=== PATIENT | male | born 1970 | race Caucasian/White ===

== ENCOUNTER 2020-02-11 12:16 | Inpatient (IN) | payer BC, SELFPAY ==
[~2020-02-11] VITALS: Ht 190.5 cm; Wt 106.6 kg
[2020-02-11 12:16] VITALS: BP_SYST 146
[2020-02-11] MEDS ORDERED: ASPIRIN 81 MG TAB.CHEW PO ONE (12:30)
[2020-02-11] MEDS ORDERED: NITROGLYCERIN 0.4 MG TAB.SUBL SL ONE (12:30)
--- NOTE | 2020-02-11 12:40 | NUR ---
DR WAHL IN TO ASSESS
[2020-02-11 12:58] LABS: BASOPHILS % (AUTO) 0.9 % (0.0-2.0); EOSINOPHILS # (AUTO) 0.1 K/uL (0.0-0.4); HEMATOCRIT 41.8 % (36-54); HEMOGLOBIN 15.1 g/dL (14.0-18.0); LYMPHOCYTES # (AUTO) 1.9 K/uL (1.0-5.5); LYMPHOCYTES % (AUTO) 36.3 % (20.5-51.5); MEAN CORPUSCULAR HEMOGLOBIN 30 pg (27-31); MEAN CORPUSCULAR HGB CONC 36 % (32-36); MEAN CORPUSCULAR VOLUME 83 fL (79.0-98.0); MONOCYTES # (AUTO) 0.4 K/uL (0.0-1.0); MONOCYTES % (AUTO) 6.8 % (1.7-9.3); NEUTROPHILS # (AUTO) 2.8 K/uL (1.8-7.7); PLATELET COUNT (AUTO) 233 K/uL (130-430); RED BLOOD CELL COUNT(AUTO) 5.05 MIL/uL (4.2-6.2); RED CELL DISTRIBUTION WIDTH 13.7 % (9.0-15.0); WHITE BLOOD COUNT (AUTO) 5.2 K/uL (4.8-10.8)
--- NOTE | 2020-02-11 13:01 | NUR ---
NO RELIEF WITH NTG
--- NOTE | 2020-02-11 13:15 | NUR ---
C/O LT UPPER BACK AND CHEST PAIN. WOKE WITH PAIN AND WENT TO PLAY TENNIS. HE C/O SOME ANXIETY BUT UNSURE, SR ON MONITOR AND EKG. RESP UNLABORED, SKIN WARM AND DRY. COMMUNICATES CLEAR
[2020-02-11 13:19] LABS: ANION GAP 9 (5-15); CALCIUM 8.1 mg/dL (8.4-11.0); CHLORIDE 103 mmol/L (98-107); CREATININE 0.98 mg/dL (0.55-1.30); GLUCOSE 121 mg/dL (70-99); POTASSIUM 3.9 mmol/L (3.5-5.1); SODIUM SERUM 139 mmol/L (136-145); UREA NITROGEN, BLOOD 13 mg/dL (8-21)
[2020-02-11 13:22] LABS: GFR AFRICAN AMERICAN 105 mL/min (>90)
--- NOTE | 2020-02-11 13:53 | NUR ---
STATES FEELING BETTER AND REDY TO GO HOME. NO DISTRESS, RESP UNLABORED
[2020-02-11] MEDS ORDERED: NITROGLYCERIN 0.4 MG TAB.SUBL SL PRN (14:15)
--- NOTE | 2020-02-11 14:15 | NUR ---
ADMIT ORDERS RECEIVED FOR TELE/CP/KAIUM
--- NOTE | 2020-02-11 14:23 | NUR ---
Patient will be admitted to care of [facility]. Admitted to TELE unit. Will go to room 100A. Belongings list completed. Complete and up to date summary report printed. SBAR report to be given at bedside with opportunity for questions.
--- NOTE | 2020-02-11 15:02 | NUR ---
Admission Note Received patient from ER with diagnosis of chest pain. Initial Plan of Care discussed-patient verbalized understanding. Family at bedside. Oriented to room, call light, pain management and safety.
[2020-02-11 15:09] VITALS: BP_SYST 136
[2020-02-11 15:10] VITALS: BP_SYST 136
--- NOTE | 2020-02-11 15:30 | NUR ---
ASSESSMENT ASSESSMENT COMPLETED, PATIENT IN BED, RESPIRATIONS EVEN, NON LABORED, BED IN LOW AND LOCKED POSITION, CALL LIGHT WITHIN REACH, DENIES ANY PAIN OR DISCOMFORT
[2020-02-11 16:09] VITALS: BP_SYST 162
--- NOTE | 2020-02-11 16:30 | NUR ---
NURSE NOTE PATIENT IN BED, RESPIRATIONS EVEN, NON LABORED, BED IN LOW AND LOCKED POSITION, CALL LIGHT WITHIN REACH. DENIES ANY PAIN OR DISCOMFORT
--- NOTE | 2020-02-11 17:45 | NUR ---
ROUNDS DR MUJICA BEDSIDE EXAMINING PATIENT
--- NOTE | 2020-02-11 19:15 | NUR ---
CLOSING NOTE PROVIDED BEDSIDE SBAR TO NIGHT RN, PATIENT IN BED, RESPIRATIONS EVEN, NON LABORED BED IN LOW AND LOCKED POSITION, CALL LIGHT WITHIN REACH, ENDORSED CARE TO NIGHT RN
--- NOTE | 2020-02-11 19:30 | NUR ---
Opening note Received patient awake, AOx4, sitting on bed w/ legs dangle. No distress and non labored breathing on room air. He is ambulatory with steady gait and has been walking to restroom and independently. He demonstrates use of call light. IV to LAC is patent and saline locked. Udated board and reviewed plan of care.
[2020-02-11 20:00] VITALS: BP_SYST 150
--- NOTE | 2020-02-11 20:00 | NUR ---
Lab draw atm technician at bedside for blood draw.
[2020-02-11] MEDS ORDERED: ENOXAPARIN SODIUM 40 MG/0.4 ML SYRINGE SUBCUT SCH (21:00)
--- NOTE | 2020-02-11 21:50 | NUR ---
Dr. Epifanio Godfrey at nursing station; Informed patient's B/P was 162/97 at 1600 and 150/76 at 2000, HR 72. Received new medication orders, read back; Lopressor 50mg PO daily with first dose now.
[2020-02-11] MEDS ORDERED: METOPROLOL TARTRATE 50 MG TABLET PO ONE (22:00)
--- NOTE | 2020-02-11 22:22 | NUR ---
meds Lopressor given as ordered; reviewed side effects and patient verbalized understanding. He refused Lovenox. He has no further needs, will continue to monitor.
[2020-02-12 00:09] VITALS: BP_SYST 182
[2020-02-12 00:15] VITALS: BP_SYST 118
--- NOTE | 2020-02-12 00:15 | NUR ---
rounds, V/S Patient was resting w/ eyes closed and momentarily awakened for V/S; B/P 118/68, HR 66. He reports no chest pain.
--- NOTE | 2020-02-12 02:42 | NUR ---
rounds Patient is awake, resting in bed, no distress. I offered ear plugs (there is a patient yelling very loud in hallway) and he said he was ok, declined. He has his cell phone and said he has no further needs.
--- NOTE | 2020-02-12 03:30 | NUR ---
Awake, walking Patient is awake, walking in hallway, no distress.
--- NOTE | 2020-02-12 04:30 | NUR ---
sleeping Patient is sleeping, symmetrical rise and fall of chest noted, non labored breathing. Call light w/in reach.
[2020-02-12 04:43] LABS: EOSINOPHILS # (AUTO) 0.1 K/uL (0.0-0.4); EOSINOPHILS % (AUTO) 2.6 % (0.0-4.0); HEMATOCRIT 40.5 % (36-54); HEMOGLOBIN 14.2 g/dL (14.0-18.0); LYMPHOCYTES # (AUTO) 2.2 K/uL (1.0-5.5); LYMPHOCYTES % (AUTO) 46.3 % (20.5-51.5); MEAN CORPUSCULAR HEMOGLOBIN 29 pg (27-31); MEAN CORPUSCULAR HGB CONC 35 % (32-36); MEAN CORPUSCULAR VOLUME 83 fL (79.0-98.0); MONOCYTES # (AUTO) 0.5 K/uL (0.0-1.0); MONOCYTES % (AUTO) 9.7 % (1.7-9.3); NEUTROPHILS % (AUTO) 40.4 % (40.0-70.0); PLATELET COUNT (AUTO) 188 K/uL (130-430); RED BLOOD CELL COUNT(AUTO) 4.86 MIL/uL (4.2-6.2); WHITE BLOOD COUNT (AUTO) 4.9 K/uL (4.8-10.8)
[2020-02-12 05:00] LABS: CHOLESTEROL 242 mg/dL (<200); HDL CHOLESTEROL 31 mg/dL (>45); LDL CHOLESTEROL 98 mg/dL (<100); TRIGLYCERIDES 637 mg/dL (30-150)
[2020-02-12 05:05] LABS: ANION GAP 9 (5-15); CALCIUM 7.8 mg/dL (8.4-11.0); CHLORIDE 105 mmol/L (98-107); CREATININE 0.87 mg/dL (0.55-1.30); GLUCOSE 110 mg/dL (70-99); POTASSIUM 4.1 mmol/L (3.5-5.1); SODIUM SERUM 140 mmol/L (136-145); UREA NITROGEN, BLOOD 13 mg/dL (8-21)
[2020-02-12 05:06] LABS: GFR AFRICAN AMERICAN 120 mL/min (>90)
[2020-02-12 06:00] VITALS: BP_SYST 155
--- NOTE | 2020-02-12 06:05 | NUR ---
V/S, rounds Patient is awake sitting in bed. He requested a coffee and a cup of decaf was provided. He denies chest pain. V/S taken and B/P 155/77, HR 77.
--- NOTE | 2020-02-12 07:20 | NUR ---
closing note Endorsed report, patient stable. No distress and non labored breathing on room air. Needs met throughout shift.
--- NOTE | 2020-02-12 07:29 | NUR ---
OPENING NOTE RECIEVED SBAR FROM NIGHT RN, PATIENT IN BED, RESPIRATIONS EVEN, NON LABORED BED IN LOW AND LOCKED POSITION, CALL LIGHT WITHIN REACH
[2020-02-12 07:50] VITALS: BP_SYST 120
--- NOTE | 2020-02-12 08:10 | NUR ---
NURSE NOTE ADMINISTERED MEDICATIONS, PATIENT IN BED, RESPIRATIONS EVEN, NON LABORED, BED IN LOW AND LOCKED POSITION, CALL LIGHT WITHIN REACH
[2020-02-12] MEDS ORDERED: ASPIRIN 81 MG TAB.CHEW PO SCH (09:00)
[2020-02-12] MEDS ORDERED: METOPROLOL TARTRATE 50 MG TABLET PO SCH (09:00)
--- NOTE | 2020-02-12 10:13 | NUR ---
NURSE NOTE PATIENT IN BED, WORKING ON COMPUTER, RESPIRATIONS EVEN, NON LABORED BED IN LOW AND LOCKED POSITION, CALL LIGHT WITHIN REACH
--- NOTE | 2020-02-12 11:50 | NUR ---
NURSE NOTE PATIENT IN BED, EYES CLOSED, RESPIRATIONS EVEN, NON LABORED BED IN LOW AND LOCKED POSITION, CALL LIGHT WITHIN REACH
[2020-02-12 12:13] VITALS: BP_SYST 138
--- NOTE | 2020-02-12 12:45 | NUR ---
rounds Dr Godfrey bedside examining patient
[2020-02-12 13:40] VITALS: BP_SYST 132
[2020-02-12] MEDS ORDERED: METO-542 PO (13:53)
[2020-02-12] MEDS ORDERED: TRI48 PO (13:54)
[2020-02-12] MEDS ORDERED: LIP40 PO (13:54)
--- NOTE | 2020-02-12 14:06 | NUR ---
D/C Patient Patient given medication reconciliation form and D/C instructions. Exit Care provided. Patient verbalized understanding. MD discussed with patient the results and treatment provided. Ambulatory with steady gait for discharge to home. Patient in stable condition, ID band removed. IV catheter removed, intact and dressing applied, no active bleeding. All belongings sent with patient. Patient states he lives next door to hospital, and will be walking home, educated patient that it is recommended that someone pick him up and offered to call a taxi for him, patient verbalized understanding continued to insist that he would walk home
== END 2020-02-12 14:10 | disposition home or self-care (01) | DRG 206 ==
LOC: SED 12:16 → STU 14:11
PROVIDERS: ADMIT Family Medicine; ATTEND Family Medicine
DX: M94.0 Chondrocostal junction syndrome [Tietze] (principal); E78.5 Hyperlipidemia, unspecified; I10 Essential (primary) hypertension; Z20.828 Contact with and (suspected) exposure to other viral communicable diseases
CPT/HCPCS: 36415; 71045; 80048; 80061; 82550-TC; 83735-TC; 84484; 85025; 93005; G0378

== ENCOUNTER 2023-02-17 13:38 | Inpatient (IN) | payer BC ==
[~2023-02-17] VITALS: Ht 182.9 cm; Wt 99.8 kg
[~2023-02-17 13:38] MED LIST: LIP40 PO; METO-542 PO; TRI48 PO
[2023-02-17 13:45] VITALS: BP_SYST 121; PULSE 62; RESP 22; TEMP 98.3; O2SAT 100
[2023-02-17 14:04] LABS: BASOPHILS % (AUTO) 0.4 % (0.0-2.0); EOSINOPHILS % (AUTO) 0.1 % (0.0-4.0); HEMATOCRIT 44.4 % (36-54); HEMOGLOBIN 15.4 g/dL (14.0-18.0); LYMPHOCYTES # (AUTO) 1.9 K/uL (1.0-5.5); LYMPHOCYTES % (AUTO) 18.2 % (20.5-51.5); MEAN CORPUSCULAR HEMOGLOBIN 29 pg (27-31); MEAN CORPUSCULAR HGB CONC 35 % (32-36); MEAN CORPUSCULAR VOLUME 82 fL (79.0-98.0); MONOCYTES # (AUTO) 0.4 K/uL (0.0-1.0); MONOCYTES % (AUTO) 3.8 % (1.7-9.3); NEUTROPHILS % (AUTO) 77.5 % (40.0-70.0); PLATELET COUNT (AUTO) 257 K/uL (130-430); RED BLOOD CELL COUNT(AUTO) 5.39 MIL/uL (4.2-6.2); RED CELL DISTRIBUTION WIDTH 13.3 % (9.0-15.0); WHITE BLOOD COUNT (AUTO) 10.3 K/uL (4.8-10.8)
[2023-02-17] MEDS ORDERED: ONDANSETRON HCL 4 MG/2 ML VIAL IVP ONE (14:15)
[2023-02-17] MEDS ORDERED: MORPHINE 4 MG INJ. 4 MG/ML VIAL IVP ONE ×2 (14:15→15:00)
[2023-02-17 14:25] LABS: CALCIUM 9.3 mg/dL (8.4-11.0); CREATININE 1.06 mg/dL (0.55-1.30); POTASSIUM 3.6 mmol/L (3.5-5.1)
[2023-02-17 14:29] LABS: ALBUMIN 3.9 g/dL (3.4-4.8); BILIRUBIN,DIRECT 0.2 mg/dL (0.0-0.3); TOTAL BILIRUBIN 1.3 mg/dL (0.0-1.0); TOTAL PROTEIN, SERUM 7.9 g/dL (6.4-8.3)
[2023-02-17] MEDS ORDERED: cefTRIAXone 1 GM IVPB PREMIX 50 ML IV ONE (15:00)
[2023-02-17] MEDS ORDERED: NACL 0.9% 1,000 ML IV ONE (15:00)
[2023-02-17] MEDS ORDERED: METOCLOPRAMIDE HCL 10 MG/2 ML VIAL IVP ONE (15:00)
[2023-02-17 15:19] LABS: INR 1.1 (0.80-1.20); PROTHROMBIN TIME 11.3 SECS (9.5-12.5)
[2023-02-17] MEDS ORDERED: D5/0.45 NS 1,000 ML IV SCH (16:15)
[2023-02-17] MEDS: ONDANSETRON HCL 4 MG/2 ML VIAL IVP PRN (17:01)
[2023-02-17] MEDS: MORPHINE 4 MG INJ. 4 MG/ML VIAL IVP PRN (17:04)
[2023-02-17] MEDS ORDERED: KCL 20 mEq in D5/0.45NS 1000mL 1,000 ML IV SCH (18:00)
[2023-02-17] MEDS: cefOXitin SODIUM 1 GM in D5W 50 ML IV SCH (18:02)
[2023-02-17] MEDS: HYDROmorphone 2 MG/ML VIAL IVP PRN ×2 (18:03→21:30)
[2023-02-17 18:18] LABS: BILIRUBIN,URINE NEGATIVE (NEGATIVE); BLOOD, URINE NEGATIVE (NEGATIVE); CLARITY/URINE CLEAR (CLEAR); COLOR,URINE YELLOW (YELLOW); GLUCOSE,URINE NEGATIVE (NEGATIVE); KETONES,URINE TRACE (NEGATIVE); LEUKOCYTE ESTERASE ,URINE NEGATIVE (NEGATIVE); NITRITE, URINE NEGATIVE (NEGATIVE); PH,URINE 7.5 (5.0-8.0); PROTEIN URINE NEGATIVE (NEGATIVE); UROBILINOGEN,URINE 0.2 (0.2-1.0)
[2023-02-17 20:00] VITALS: BP_SYST 119; PULSE 71; RESP 18; TEMP 97.8; O2SAT 96
[2023-02-17] MEDS: KCL 20 mEq in D5/0.45NS 1000mL 1,000 ML IV SCH (21:39)
[2023-02-17 23:00] VITALS: O2SAT 98
[2023-02-18] VITALS (9 sets, daily range): BP systolic 118–145; PULSE 66–98; RESP 17–18; TEMP 97.9–98.6; O2SAT 92–98
[2023-02-18] MEDS: cefOXitin SODIUM 1 GM in D5W 50 ML IV SCH ×4 (00:46→17:42)
[2023-02-18] MEDS: HYDROmorphone 2 MG/ML VIAL IVP PRN ×4 (00:55→16:59)
[2023-02-18] MEDS: KCL 20 mEq in D5/0.45NS 1000mL 1,000 ML IV SCH ×3 (01:10→17:21)
[2023-02-18] MEDS ORDERED: MIDAZOLAM HCL 2 MG/2 ML VIAL (VERSED) ONE (07:25)
[2023-02-18] MEDS ORDERED: HYDROmorphone 2 MG/ML VIAL ONE (07:25)
[2023-02-18 07:53] LABS: BASOPHILS % (AUTO) 0.2 % (0.0-2.0); EOSINOPHILS % (AUTO) 0.1 % (0.0-4.0); HEMATOCRIT 39.3 % (36-54); HEMOGLOBIN 13.1 g/dL (14.0-18.0); LYMPHOCYTES # (AUTO) 1.1 K/uL (1.0-5.5); LYMPHOCYTES % (AUTO) 10.2 % (20.5-51.5); MEAN CORPUSCULAR HEMOGLOBIN 28 pg (27-31); MEAN CORPUSCULAR HGB CONC 33 % (32-36); MEAN CORPUSCULAR VOLUME 84 fL (79.0-98.0); MONOCYTES # (AUTO) 0.8 K/uL (0.0-1.0); MONOCYTES % (AUTO) 6.7 % (1.7-9.3); NEUTROPHILS # (AUTO) 9.3 K/uL (1.8-7.7); NEUTROPHILS % (AUTO) 82.8 % (40.0-70.0); PLATELET COUNT (AUTO) 189 K/uL (130-430); RED BLOOD CELL COUNT(AUTO) 4.69 MIL/uL (4.2-6.2); RED CELL DISTRIBUTION WIDTH 13.3 % (9.0-15.0); WHITE BLOOD COUNT (AUTO) 11.2 K/uL (4.8-10.8)
[2023-02-18 08:12] LABS: CALCIUM 8.1 mg/dL (8.4-11.0); CREATININE 1.09 mg/dL (0.55-1.30); POTASSIUM 3.9 mmol/L (3.5-5.1)
[2023-02-18] MEDS ORDERED: BUPIVACAINE LIPOSOME/PF 266 MG/20 ML VIAL INFIL ONE (08:12)
[2023-02-18] MEDS: PANTOPRAZOLE SODIUM 40 MG TAB PO SCH (09:00)
[2023-02-18] MEDS ORDERED: fentaNYL CITRATE/PF 100 MCG/2 ML AMP ONE (09:23)
[2023-02-18] MEDS ORDERED: NALOXONE HCL 0.4 MG/ML AMP (NARCAN) IVP PRN ×3 (09:30→12:00)
[2023-02-18] MEDS ORDERED: ONDANSETRON HCL 4 MG/2 ML VIAL IVP PRN ×2 (09:30→12:00)
[2023-02-18] MEDS ORDERED: HYDROmorphone 1 MG/ML INJ. CARTRIDGE IVP PRN ×2 (09:30→12:00)
[2023-02-18] MEDS ORDERED: fentaNYL CITRATE/PF 100 MCG/2 ML AMP IVP ONE (09:30)
[2023-02-18] MEDS ORDERED: METOCLOPRAMIDE HCL 10 MG/2 ML VIAL IVP PRN ×2 (09:30→12:00)
[2023-02-18] MEDS ORDERED: PROPOFOL 200MG/ 20ML VIAL (DIPRIVAN) IV ONE (11:52)
[2023-02-18] MEDS ORDERED: METOCLOPRAMIDE HCL 10 MG/2 ML VIAL ONE (11:52)
[2023-02-18] MEDS ORDERED: NS IRRIG SOLN 1000 ML IR ONE (11:52)
[2023-02-18] MEDS ORDERED: ROCURONIUM BROMIDE 10 MG/ML (ZEMURON) ONE (11:52)
[2023-02-18] MEDS ORDERED: ONDANSETRON HCL 4 MG/2 ML VIAL ONE (11:52)
[2023-02-18] MEDS ORDERED: CEFOXITIN SODIUM ONE (11:52)
[2023-02-18] MEDS ORDERED: LR 1,000 ML IV.SOLN IV ONE (11:52)
[2023-02-18] MEDS ORDERED: D5W 50 ML IV.SOLN IV ONE (11:52)
[2023-02-18] MEDS ORDERED: GLYCOPYRROLATE 0.2 MG/ML VIAL ONE (11:52)
[2023-02-18] MEDS ORDERED: NS 1000 ML IV.SOLN IV ONE (11:52)
[2023-02-18] MEDS ORDERED: WATER FOR IRRIGATION,STERILE 1,000 ML IRRIG.SOLN IR ONE (11:52)
[2023-02-18] MEDS ORDERED: DEXAMETHASONE SOD PHOSPHATE 4 MG/ML VIAL ONE (11:52)
[2023-02-18] MEDS ORDERED: SEVOFLURANE 15 MIN GAS INH ONE (11:52)
[2023-02-18] MEDS: HYDROmorphone 1 MG/ML INJ. CARTRIDGE IVP PRN ×3 (12:00→13:10)
[2023-02-18] MEDS ORDERED: LABETALOL 100 MG/ 20ML VIAL IVP PRN (12:00)
[2023-02-18] MEDS ORDERED: hydrALAZINE HCL 20 MG/ML VIAL IVP PRN (12:00)
[2023-02-18] MEDS ORDERED: HYDROmorphone 1 MG/ML INJ. CARTRIDGE ONE ×3 (12:01→13:09)
[2023-02-18] MEDS ORDERED: KCL 20 mEq in D5/0.45NS 1000mL 1,000 ML IV SCH (12:15)
[2023-02-18] MEDS ORDERED: LABETALOL HCL 20 MG/4 ML CARTRIDGE IVP ONE (13:17)
[2023-02-18] MEDS: SIMETHICONE 80 MG TAB.CHEW PO PRN (20:29)
[2023-02-18] MEDS: HYDROcodone/ACETAMIN 7.5-325 MG TAB PO PRN (20:30)
[2023-02-19] VITALS (7 sets, daily range): BP systolic 130–159; PULSE 90–122; RESP 16–21; TEMP 98.4–100.1; O2SAT 92–98
[2023-02-19] MEDS: cefOXitin SODIUM 1 GM in D5W 50 ML IV SCH ×5 (00:28→23:52)
[2023-02-19] MEDS: HYDROcodone/ACETAMIN 7.5-325 MG TAB PO PRN ×4 (00:29→23:46)
[2023-02-19] MEDS: BACLOFEN 10 MG TABLET PO PRN ×3 (01:40→19:04)
[2023-02-19] MEDS: MORPHINE 4 MG INJ. 4 MG/ML VIAL IVP PRN ×5 (02:39→16:30)
[2023-02-19] MEDS: KCL 20 mEq in D5/0.45NS 1000mL 1,000 ML IV SCH ×2 (05:20→11:54)
[2023-02-19] MEDS: SIMETHICONE 80 MG TAB.CHEW PO PRN ×3 (05:20→19:04)
[2023-02-19 05:44] LABS: BASOPHILS % (AUTO) 0.1 % (0.0-2.0); HEMATOCRIT 44.6 % (36-54); HEMOGLOBIN 14.8 g/dL (14.0-18.0); MEAN CORPUSCULAR HEMOGLOBIN 28 pg (27-31); MEAN CORPUSCULAR HGB CONC 33 % (32-36); MEAN CORPUSCULAR VOLUME 85 fL (79.0-98.0); MONOCYTES # (AUTO) 0.4 K/uL (0.0-1.0); NEUTROPHILS # (AUTO) 9.4 K/uL (1.8-7.7); NEUTROPHILS % (AUTO) 86.9 % (40.0-70.0); PLATELET COUNT (AUTO) 250 K/uL (130-430); RED BLOOD CELL COUNT(AUTO) 5.27 MIL/uL (4.2-6.2); RED CELL DISTRIBUTION WIDTH 13.3 % (9.0-15.0); WHITE BLOOD COUNT (AUTO) 10.8 K/uL (4.8-10.8)
[2023-02-19 06:01] LABS: CALCIUM 8.8 mg/dL (8.4-11.0); CREATININE 1.11 mg/dL (0.55-1.30); POTASSIUM 4.1 mmol/L (3.5-5.1)
[2023-02-19] MEDS: PANTOPRAZOLE SODIUM 40 MG TAB PO SCH (11:44)
[2023-02-19] MEDS: ONDANSETRON HCL 4 MG/2 ML VIAL IVP PRN ×2 (14:18→16:29)
[2023-02-20 00:42] VITALS: BP_SYST 140; PULSE 114; RESP 20; TEMP 98.6; O2SAT 95
[2023-02-20] MEDS: HYDROmorphone 2 MG/ML VIAL IVP PRN (01:28)
[2023-02-20] MEDS: BACLOFEN 10 MG TABLET PO PRN (02:31)
[2023-02-20] MEDS: SIMETHICONE 80 MG TAB.CHEW PO PRN ×2 (02:31→09:31)
[2023-02-20] MEDS: HYDROcodone/ACETAMIN 7.5-325 MG TAB PO PRN ×3 (04:03→14:12)
[2023-02-20 05:23] LABS: BASOPHILS % (AUTO) 0.1 % (0.0-2.0); HEMATOCRIT 42.3 % (36-54); HEMOGLOBIN 14.2 g/dL (14.0-18.0); LYMPHOCYTES # (AUTO) 0.9 K/uL (1.0-5.5); MEAN CORPUSCULAR HEMOGLOBIN 28 pg (27-31); MEAN CORPUSCULAR HGB CONC 34 % (32-36); MEAN CORPUSCULAR VOLUME 84 fL (79.0-98.0); MONOCYTES # (AUTO) 0.7 K/uL (0.0-1.0); MONOCYTES % (AUTO) 4.8 % (1.7-9.3); NEUTROPHILS # (AUTO) 13.3 K/uL (1.8-7.7); NEUTROPHILS % (AUTO) 89.1 % (40.0-70.0); PLATELET COUNT (AUTO) 281 K/uL (130-430); RED BLOOD CELL COUNT(AUTO) 5.03 MIL/uL (4.2-6.2); RED CELL DISTRIBUTION WIDTH 13.4 % (9.0-15.0); WHITE BLOOD COUNT (AUTO) 14.9 K/uL (4.8-10.8)
[2023-02-20] MEDS: cefOXitin SODIUM 1 GM in D5W 50 ML IV SCH (05:54)
[2023-02-20] MEDS: ONDANSETRON HCL 4 MG/2 ML VIAL IVP PRN ×2 (07:29→12:30)
[2023-02-20 08:00] VITALS: BP_SYST 132; PULSE 108; RESP 18; TEMP 97.8; O2SAT 98
[2023-02-20] MEDS: PANTOPRAZOLE SODIUM 40 MG TAB PO SCH (09:30)
[2023-02-20 09:47] VITALS: O2SAT 98
[2023-02-20 11:15] VITALS: BP_SYST 155; PULSE 102; RESP 21; TEMP 98.6; O2SAT 93
[2023-02-20] MEDS ORDERED: COMMUNICATION ORDER XX ONE (13:15)
[2023-02-20 13:54] LABS: CALCIUM 9.2 mg/dL (8.4-11.0); CREATININE 1.09 mg/dL (0.55-1.30); POTASSIUM 3.7 mmol/L (3.5-5.1)
[2023-02-20 13:59] LABS: ALBUMIN 2.4 g/dL (3.4-4.8); TOTAL BILIRUBIN 2.4 mg/dL (0.0-1.0); TOTAL PROTEIN, SERUM 6.9 g/dL (6.4-8.3)
[2023-02-20] MEDS: metroNIDAZOLE 500 mg/NS 100 ML IV SCH ×2 (14:16→23:08)
[2023-02-20] MEDS ORDERED: POTASSIUM CHLORIDE 20 MEQ in D5LR 1,000 ML IV SCH (15:00)
[2023-02-20 15:49] LABS: BILIRUBIN,URINE NEGATIVE (NEGATIVE); BLOOD, URINE 1+ (NEGATIVE); CLARITY/URINE SL CLOUDY (CLEAR); COLOR,URINE YELLOW (YELLOW); GLUCOSE,URINE NEGATIVE (NEGATIVE); KETONES,URINE NEGATIVE (NEGATIVE); LEUKOCYTE ESTERASE ,URINE NEGATIVE (NEGATIVE); NITRITE, URINE NEGATIVE (NEGATIVE); PH,URINE 5.5 (5.0-8.0); PROTEIN URINE 3+ (NEGATIVE); UROBILINOGEN,URINE 0.2 (0.2-1.0)
[2023-02-20 15:59] LABS: BACTERIA,URINE FEW /HPF (None Seen); FINE GRANULAR CASTS,URINE 0-10 /LPF (None Seen); WBC,URINE 0-3 /HPF (0-3)
[2023-02-20] MEDS ORDERED: KCL 20 mEq in D5NS 1000 mL 1,000 ML IV SCH ×2 (16:15→17:00)
[2023-02-20] MEDS ORDERED: GASTROGRAFIN 120 ML ONE (16:18)
[2023-02-20] MEDS ORDERED: PANTOPRAZOLE SODIUM 40 MG/VIAL (PROTONIX) IVP ONE (16:30)
[2023-02-20] MEDS: KCL 20 mEq in D5NS 1000 mL 1,000 ML IV SCH (17:44)
[2023-02-20 20:00] VITALS: BP_SYST 149; PULSE 105; RESP 19; TEMP 98.2; O2SAT 95
[2023-02-21] VITALS (7 sets, daily range): BP systolic 113–149; PULSE 90–112; RESP 16–20; TEMP 97.5–98.4; O2SAT 95–100
[2023-02-21] MEDS: ONDANSETRON HCL 4 MG/2 ML VIAL IVP PRN ×3 (00:34→21:16)
[2023-02-21] MEDS: HYDROmorphone 2 MG/ML VIAL IVP PRN ×4 (00:36→21:17)
[2023-02-21] MEDS: KCL 20 mEq in D5NS 1000 mL 1,000 ML IV SCH ×3 (03:50→12:10)
[2023-02-21] MEDS: metroNIDAZOLE 500 mg/NS 100 ML IV SCH ×3 (05:14→21:17)
[2023-02-21 05:21] LABS: BASOPHILS % (AUTO) 0.1 % (0.0-2.0); EOSINOPHILS % (AUTO) 0.1 % (0.0-4.0); HEMATOCRIT 37.2 % (36-54); HEMOGLOBIN 12.4 g/dL (14.0-18.0); LYMPHOCYTES # (AUTO) 0.7 K/uL (1.0-5.5); LYMPHOCYTES % (AUTO) 5.7 % (20.5-51.5); MEAN CORPUSCULAR HEMOGLOBIN 28 pg (27-31); MEAN CORPUSCULAR HGB CONC 33 % (32-36); MEAN CORPUSCULAR VOLUME 85 fL (79.0-98.0); MONOCYTES # (AUTO) 0.7 K/uL (0.0-1.0); NEUTROPHILS # (AUTO) 10.1 K/uL (1.8-7.7); NEUTROPHILS % (AUTO) 88.1 % (40.0-70.0); PLATELET COUNT (AUTO) 284 K/uL (130-430); RED BLOOD CELL COUNT(AUTO) 4.39 MIL/uL (4.2-6.2); RED CELL DISTRIBUTION WIDTH 13.3 % (9.0-15.0); WHITE BLOOD COUNT (AUTO) 11.5 K/uL (4.8-10.8)
[2023-02-21 07:20] LABS: ALBUMIN 2.3 g/dL (3.4-4.8); CALCIUM 8.8 mg/dL (8.4-11.0); CREATININE 1.1 mg/dL (0.55-1.30); POTASSIUM 3.9 mmol/L (3.5-5.1); TOTAL BILIRUBIN 2.2 mg/dL (0.0-1.0); TOTAL PROTEIN, SERUM 6.6 g/dL (6.4-8.3)
[2023-02-21] MEDS: PANTOPRAZOLE SODIUM 40 MG/VIAL (PROTONIX) IVP SCH (08:19)
[2023-02-21] MEDS ORDERED: LORazepam 2 MG/ML VIAL IVP PRN (08:30)
[2023-02-21] MEDS ORDERED: DIATR MEGLU/DIATRIZ SOD 30 ML SOLUTION PO ONE (08:45)
[2023-02-21] MEDS ORDERED: BUPIVACAINE LIPOSOME/PF 266 MG/20 ML VIAL INFIL ONE (15:41)
[2023-02-21] MEDS ORDERED: HYDROmorphone 2 MG/ML VIAL ONE (15:56)
[2023-02-21] MEDS ORDERED: MIDAZOLAM HCL 2 MG/2 ML VIAL (VERSED) ONE (15:57)
[2023-02-21] MEDS ORDERED: ONDANSETRON HCL 4 MG/2 ML VIAL ONE (16:00)
[2023-02-21] MEDS ORDERED: NS IRRIG SOLN 1000 ML IR ONE (16:00)
[2023-02-21] MEDS ORDERED: DEXAMETHASONE SOD PHOSPHATE 4 MG/ML VIAL ONE (16:00)
[2023-02-21] MEDS ORDERED: SUCCINYLCHOLINE CHLORIDE 20 MG/ML(QUELICIN) ONE (16:00)
[2023-02-21] MEDS ORDERED: GLYCOPYRROLATE 0.2 MG/ML VIAL ONE (16:00)
[2023-02-21] MEDS ORDERED: NEOSTIGMINE METHYLSULFATE 1 MG/ML, 10 ML VIAL ONE (16:00)
[2023-02-21] MEDS ORDERED: PROPOFOL 200MG/ 20ML VIAL (DIPRIVAN) IV ONE (16:00)
[2023-02-21] MEDS ORDERED: SEVOFLURANE 15 MIN GAS INH ONE (16:00)
[2023-02-21] MEDS ORDERED: WATER FOR IRRIGATION,STERILE 1,000 ML IRRIG.SOLN IR ONE (16:00)
[2023-02-21] MEDS ORDERED: ROCURONIUM BROMIDE 10 MG/ML (ZEMURON) ONE (16:00)
[2023-02-21] MEDS ORDERED: LR 1,000 ML IV SCH (17:30)
[2023-02-21] MEDS ORDERED: HYDROmorphone 2 MG/ML VIAL IVP PRN (17:30)
[2023-02-21] MEDS ORDERED: HYDROmorphone 1 MG/ML INJ. CARTRIDGE IVP PRN ×2 (17:30)
[2023-02-21] MEDS ORDERED: ONDANSETRON HCL 4 MG/2 ML VIAL IVP PRN (17:30)
[2023-02-21] MEDS ORDERED: NALOXONE HCL 0.4 MG/ML AMP (NARCAN) IVP PRN ×3 (17:30)
[2023-02-21] MEDS ORDERED: HYDROmorphone 1 MG/ML INJ. CARTRIDGE ONE (19:29)
[2023-02-22 00:16] VITALS: BP_SYST 107; PULSE 95; RESP 20; TEMP 98.8; O2SAT 95
[2023-02-22] MEDS: KCL 20 mEq in D5NS 1000 mL 1,000 ML IV SCH ×3 (01:08→08:03)
[2023-02-22] MEDS: HYDROmorphone 2 MG/ML VIAL IVP PRN ×5 (01:08→20:13)
[2023-02-22] MEDS: ONDANSETRON HCL 4 MG/2 ML VIAL IVP PRN ×3 (05:06→19:50)
[2023-02-22] MEDS: metroNIDAZOLE 500 mg/NS 100 ML IV SCH ×3 (05:09→22:58)
[2023-02-22 08:00] VITALS: BP_SYST 133; PULSE 85; RESP 18; TEMP 99.1; O2SAT 99
[2023-02-22] MEDS: PANTOPRAZOLE SODIUM 40 MG/VIAL (PROTONIX) IVP SCH (08:01)
[2023-02-22 08:39] LABS: BASOPHILS % (AUTO) 0.1 % (0.0-2.0); HEMATOCRIT 38.4 % (36-54); HEMOGLOBIN 12.3 g/dL (14.0-18.0); LYMPHOCYTES # (AUTO) 0.5 K/uL (1.0-5.5); LYMPHOCYTES % (AUTO) 5.7 % (20.5-51.5); MEAN CORPUSCULAR HEMOGLOBIN 28 pg (27-31); MEAN CORPUSCULAR HGB CONC 32 % (32-36); MEAN CORPUSCULAR VOLUME 87 fL (79.0-98.0); MONOCYTES # (AUTO) 0.7 K/uL (0.0-1.0); MONOCYTES % (AUTO) 7.9 % (1.7-9.3); NEUTROPHILS # (AUTO) 7.7 K/uL (1.8-7.7); NEUTROPHILS % (AUTO) 86.3 % (40.0-70.0); PLATELET COUNT (AUTO) 302 K/uL (130-430); RED BLOOD CELL COUNT(AUTO) 4.41 MIL/uL (4.2-6.2); RED CELL DISTRIBUTION WIDTH 13.9 % (9.0-15.0); WHITE BLOOD COUNT (AUTO) 8.9 K/uL (4.8-10.8)
[2023-02-22] MEDS ORDERED: *TPN PER PHARMACY XX PRN (09:00)
[2023-02-22 09:32] LABS: ALBUMIN 1.7 g/dL (3.4-4.8); CREATININE 1.49 mg/dL (0.55-1.30); POTASSIUM 4.7 mmol/L (3.5-5.1); TOTAL BILIRUBIN 1.9 mg/dL (0.0-1.0); TOTAL PROTEIN, SERUM 5.5 g/dL (6.4-8.3)
[2023-02-22] MEDS: D5LR 1,000 ML IV SCH ×3 (10:50→23:02)
[2023-02-22] MEDS ORDERED: MORPHINE PCA 50 mg/50 mL NS 50 ML IV PRN (11:00)
[2023-02-22] MEDS ORDERED: NALOXONE HCL 0.4 MG/ML AMP (NARCAN) IVP PRN ×2 (11:15→11:16)
[2023-02-22 11:30] VITALS: BP_SYST 137; PULSE 85; RESP 18; TEMP 98.5; O2SAT 100
[2023-02-22 19:00] VITALS: BP_SYST 132; PULSE 83; RESP 16; TEMP 98.8; O2SAT 96; O2SAT 98
[2023-02-22 20:00] VITALS: BP_SYST 132; PULSE 83; RESP 16; TEMP 98.8; O2SAT 98
[2023-02-22] MEDS ORDERED: TPN PERIPHERAL 0.0001 ML, MVI 5 ML, TRACE ELEMENTS 1 ML in PARENTERAL AMINO ACID 8.5 % ... IV SCH ×5 (21:00)
[2023-02-23] MEDS: HYDROmorphone 2 MG/ML VIAL IVP PRN ×8 (00:05→20:52)
[2023-02-23] MEDS: ONDANSETRON HCL 4 MG/2 ML VIAL IVP PRN ×6 (00:06→20:55)
[2023-02-23 00:11] VITALS: BP_SYST 143; PULSE 83; RESP 19; TEMP 97.9; O2SAT 99
[2023-02-23 05:23] LABS: BASOPHILS % (AUTO) 0.2 % (0.0-2.0); EOSINOPHILS # (AUTO) 0.1 K/uL (0.0-0.4); EOSINOPHILS % (AUTO) 1.1 % (0.0-4.0); HEMOGLOBIN 10.9 g/dL (14.0-18.0); LYMPHOCYTES # (AUTO) 0.8 K/uL (1.0-5.5); LYMPHOCYTES % (AUTO) 10.4 % (20.5-51.5); MEAN CORPUSCULAR HEMOGLOBIN 28 pg (27-31); MEAN CORPUSCULAR HGB CONC 32 % (32-36); MEAN CORPUSCULAR VOLUME 87 fL (79.0-98.0); MONOCYTES % (AUTO) 12.2 % (1.7-9.3); NEUTROPHILS # (AUTO) 6.1 K/uL (1.8-7.7); NEUTROPHILS % (AUTO) 76.1 % (40.0-70.0); PLATELET COUNT (AUTO) 250 K/uL (130-430)
[2023-02-23 05:36] LABS: ALBUMIN 1.6 g/dL (3.4-4.8); CALCIUM 8.2 mg/dL (8.4-11.0); CREATININE 0.96 mg/dL (0.55-1.30); PHOSPHORUS 3.1 mg/dL (2.7-4.5); POTASSIUM 4.6 mmol/L (3.5-5.1); TOTAL BILIRUBIN 1.1 mg/dL (0.0-1.0); TOTAL PROTEIN, SERUM 5.4 g/dL (6.4-8.3)
[2023-02-23] MEDS: metroNIDAZOLE 500 mg/NS 100 ML IV SCH ×3 (06:38→21:39)
[2023-02-23] MEDS: PANTOPRAZOLE SODIUM 40 MG/VIAL (PROTONIX) IVP SCH (08:24)
[2023-02-23] MEDS: D5LR 1,000 ML IV SCH ×2 (08:25→15:21)
[2023-02-23 11:00] VITALS: O2SAT 97
[2023-02-23 12:26] VITALS: BP_SYST 147; PULSE 103; RESP 20; TEMP 99.1; O2SAT 92
[2023-02-23 16:17] VITALS: O2SAT 93
[2023-02-23 16:46] VITALS: BP_SYST 145; PULSE 108; RESP 20; TEMP 99.7; O2SAT 93
[2023-02-23] MEDS ORDERED: HYDROmorphone 2 MG TAB PO PRN (19:30)
[2023-02-23] MEDS ORDERED: NALOXONE HCL 0.4 MG/ML AMP (NARCAN) IVP PRN (19:30)
[2023-02-23 20:20] VITALS: BP_SYST 145; PULSE 101; RESP 18; TEMP 98.6; O2SAT 92
[2023-02-23] MEDS ORDERED: MVI IV SCH ×6 (21:00)
[2023-02-23] MEDS ORDERED: TRACE ELEMENTS IV SCH ×6 (21:00)
[2023-02-23] MEDS ORDERED: TPN PERIPHERAL IV SCH ×6 (21:00)
[2023-02-23] MEDS ORDERED: [UNRECOGNIZED DRUG - OTHER] IV SCH ×6 (21:00)
[2023-02-23] MEDS ORDERED: NA PHOS IV SCH ×6 (21:00)
[2023-02-23] MEDS: FAT EMULSIONS 250 ML IV SCH (21:46)
[2023-02-24] VITALS (7 sets, daily range): BP systolic 124–146; PULSE 80–104; RESP 17–20; TEMP 97.6–98.8; O2SAT 90–98
[2023-02-24] MEDS: KETOROLAC TROMETHAMINE 30 MG VIAL IVP PRN ×3 (00:35→15:29)
[2023-02-24] MEDS: HYDROmorphone 2 MG/ML VIAL IVP PRN ×2 (01:33→07:00)
[2023-02-24 06:04] LABS: BASOPHILS % (AUTO) 0.2 % (0.0-2.0); EOSINOPHILS # (AUTO) 0.1 K/uL (0.0-0.4); HEMATOCRIT 34.4 % (36-54); HEMOGLOBIN 11.1 g/dL (14.0-18.0); LYMPHOCYTES # (AUTO) 1.1 K/uL (1.0-5.5); MEAN CORPUSCULAR HEMOGLOBIN 28 pg (27-31); MEAN CORPUSCULAR HGB CONC 32 % (32-36); MEAN CORPUSCULAR VOLUME 88 fL (79.0-98.0); MONOCYTES # (AUTO) 1.1 K/uL (0.0-1.0); MONOCYTES % (AUTO) 11.5 % (1.7-9.3); NEUTROPHILS # (AUTO) 6.9 K/uL (1.8-7.7); NEUTROPHILS % (AUTO) 75.3 % (40.0-70.0); PLATELET COUNT (AUTO) 251 K/uL (130-430); RED BLOOD CELL COUNT(AUTO) 3.91 MIL/uL (4.2-6.2); RED CELL DISTRIBUTION WIDTH 13.6 % (9.0-15.0); WHITE BLOOD COUNT (AUTO) 9.2 K/uL (4.8-10.8)
[2023-02-24] MEDS: metroNIDAZOLE 500 mg/NS 100 ML IV SCH ×3 (06:23→20:51)
[2023-02-24 07:06] LABS: ALBUMIN 1.5 g/dL (3.4-4.8); CALCIUM 8.1 mg/dL (8.4-11.0); CREATININE 1.07 mg/dL (0.55-1.30); PHOSPHORUS 5.2 mg/dL (2.7-4.5); POTASSIUM 3.9 mmol/L (3.5-5.1); TOTAL BILIRUBIN 1.4 mg/dL (0.0-1.0); TOTAL PROTEIN, SERUM 5.2 g/dL (6.4-8.3)
[2023-02-24] MEDS: D5LR 1,000 ML IV SCH (07:06)
[2023-02-24] MEDS: PANTOPRAZOLE SODIUM 40 MG/VIAL (PROTONIX) IVP SCH (08:50)
[2023-02-24] MEDS ORDERED: NALOXONE HCL 0.4 MG/ML AMP (NARCAN) IVP PRN (09:30)
[2023-02-24] MEDS: HYDROmorphone 1 MG/ML INJ. CARTRIDGE IVP PRN ×3 (12:20→20:55)
[2023-02-24 14:06] LABS: HEPATITIS A AB, IgM Negative (Negative); HEPATITIS B CORE AB, IgM Negative (Negative); HEPATITIS B SURFACE AG Negative (Negative); HEPATITIS C VIRUS AB Non Reactive (Non Reactive)
[2023-02-24] MEDS: FAT EMULSIONS 250 ML IV SCH (20:51)
[2023-02-24] MEDS ORDERED: MVI IV SCH ×6 (21:00)
[2023-02-24] MEDS ORDERED: TPN PERIPHERAL IV SCH ×6 (21:00)
[2023-02-24] MEDS ORDERED: TRACE ELEMENTS IV SCH ×6 (21:00)
[2023-02-24] MEDS ORDERED: [UNRECOGNIZED DRUG - OTHER] IV SCH ×6 (21:00)
[2023-02-24] MEDS ORDERED: SODIUM CHLORIDE IV SCH ×6 (21:00)
[2023-02-25] MEDS: KETOROLAC TROMETHAMINE 30 MG VIAL IVP PRN ×4 (00:19→17:48)
[2023-02-25] MEDS: D5LR 1,000 ML IV SCH ×2 (00:24→15:22)
[2023-02-25] MEDS: HYDROmorphone 1 MG/ML INJ. CARTRIDGE IVP PRN (02:41)
[2023-02-25 04:08] VITALS: BP_SYST 133; PULSE 83; RESP 18; TEMP 97.7; O2SAT 98
[2023-02-25 05:57] LABS: BASOPHILS % (AUTO) 0.4 % (0.0-2.0); EOSINOPHILS # (AUTO) 0.2 K/uL (0.0-0.4); EOSINOPHILS % (AUTO) 2.5 % (0.0-4.0); HEMATOCRIT 33.5 % (36-54); HEMOGLOBIN 10.7 g/dL (14.0-18.0); LYMPHOCYTES # (AUTO) 0.8 K/uL (1.0-5.5); LYMPHOCYTES % (AUTO) 10.6 % (20.5-51.5); MEAN CORPUSCULAR HEMOGLOBIN 28 pg (27-31); MEAN CORPUSCULAR HGB CONC 32 % (32-36); MEAN CORPUSCULAR VOLUME 87 fL (79.0-98.0); MONOCYTES # (AUTO) 0.7 K/uL (0.0-1.0); MONOCYTES % (AUTO) 8.2 % (1.7-9.3); NEUTROPHILS # (AUTO) 6.3 K/uL (1.8-7.7); NEUTROPHILS % (AUTO) 78.3 % (40.0-70.0); PLATELET COUNT (AUTO) 256 K/uL (130-430); RED BLOOD CELL COUNT(AUTO) 3.87 MIL/uL (4.2-6.2); RED CELL DISTRIBUTION WIDTH 13.4 % (9.0-15.0)
[2023-02-25] MEDS: metroNIDAZOLE 500 mg/NS 100 ML IV SCH ×3 (06:00→22:02)
[2023-02-25 06:41] LABS: ALBUMIN 1.6 g/dL (3.4-4.8); CALCIUM 8.4 mg/dL (8.4-11.0); PHOSPHORUS 4.7 mg/dL (2.7-4.5); POTASSIUM 3.4 mmol/L (3.5-5.1); TOTAL BILIRUBIN 1.1 mg/dL (0.0-1.0); TOTAL PROTEIN, SERUM 5.7 g/dL (6.4-8.3)
[2023-02-25 08:00] VITALS: O2SAT 99
[2023-02-25 08:34] VITALS: BP_SYST 129; PULSE 94; RESP 19; TEMP 97.5; O2SAT 94
[2023-02-25] MEDS: PANTOPRAZOLE SODIUM 40 MG/VIAL (PROTONIX) IVP SCH (09:26)
[2023-02-25 18:17] VITALS: BP_SYST 126; PULSE 90; RESP 18; TEMP 98
[2023-02-25 19:00] VITALS: BP_SYST 128; PULSE 92; RESP 16; TEMP 98.2; O2SAT 96
[2023-02-25 20:00] VITALS: BP_SYST 128; PULSE 92; RESP 16; TEMP 98.2; O2SAT 96
[2023-02-25] MEDS ORDERED: [UNRECOGNIZED DRUG - OTHER] IV SCH ×7 (21:00)
[2023-02-25] MEDS ORDERED: MVI IV SCH ×7 (21:00)
[2023-02-25] MEDS ORDERED: POTASSIUM CHLORIDE IV SCH ×7 (21:00)
[2023-02-25] MEDS ORDERED: TPN PERIPHERAL IV SCH ×7 (21:00)
[2023-02-25] MEDS ORDERED: SODIUM CHLORIDE IV SCH ×7 (21:00)
[2023-02-25] MEDS: FAT EMULSIONS 250 ML IV SCH (22:02)
[2023-02-26] MEDS: KETOROLAC TROMETHAMINE 30 MG VIAL IVP PRN ×3 (00:26→12:19)
[2023-02-26 01:41] VITALS: BP_SYST 127; PULSE 94; RESP 17; TEMP 98.2; O2SAT 94
[2023-02-26] MEDS: D5LR 1,000 ML IV SCH (02:20)
[2023-02-26] MEDS: metroNIDAZOLE 500 mg/NS 100 ML IV SCH (06:06)
[2023-02-26 06:37] LABS: ALBUMIN 1.9 g/dL (3.4-4.8); CALCIUM 8.5 mg/dL (8.4-11.0); CREATININE 1.12 mg/dL (0.55-1.30); PHOSPHORUS 4.8 mg/dL (2.7-4.5); POTASSIUM 3.3 mmol/L (3.5-5.1); TOTAL PROTEIN, SERUM 6.3 g/dL (6.4-8.3)
[2023-02-26 08:00] VITALS: BP_SYST 124; PULSE 84; RESP 18; TEMP 98; O2SAT 96; O2SAT 98
[2023-02-26] MEDS: PANTOPRAZOLE SODIUM 40 MG/VIAL (PROTONIX) IVP SCH (09:02)
[2023-02-26] MEDS ORDERED: MVI IV SCH ×14 (12:15→21:00)
[2023-02-26] MEDS ORDERED: POTASSIUM CHLORIDE IV SCH ×14 (12:15→21:00)
[2023-02-26] MEDS ORDERED: [UNRECOGNIZED DRUG - OTHER] IV SCH ×14 (12:15→21:00)
[2023-02-26] MEDS ORDERED: TPN PERIPHERAL IV SCH ×14 (12:15→21:00)
[2023-02-26] MEDS ORDERED: SODIUM CHLORIDE IV SCH ×14 (12:15→21:00)
[2023-02-26] MEDS: D5LR IV SCH (12:45)
[2023-02-26] MEDS ORDERED: traMADol HCL HCL 50 MG TABLET (ULTRAM) PO PRN (12:45)
[2023-02-26] MEDS: POTASSIUM CHLORIDE IV SCH (12:45)
[2023-02-26] MEDS: ACETAMINOPHEN 325 MG TABLET PO PRN (18:36)
[2023-02-26] MEDS ORDERED: D5LR 1,000 ML IV SCH (21:00)
[2023-02-27] MEDS: D5LR IV SCH ×2 (02:52→15:50)
[2023-02-27] MEDS: POTASSIUM CHLORIDE IV SCH ×2 (02:52→15:50)
[2023-02-27 05:48] LABS: BASOPHILS % (AUTO) 0.4 % (0.0-2.0); EOSINOPHILS # (AUTO) 0.2 K/uL (0.0-0.4); EOSINOPHILS % (AUTO) 1.8 % (0.0-4.0); HEMATOCRIT 33.5 % (36-54); LYMPHOCYTES # (AUTO) 1.3 K/uL (1.0-5.5); LYMPHOCYTES % (AUTO) 11.7 % (20.5-51.5); MEAN CORPUSCULAR HEMOGLOBIN 28 pg (27-31); MEAN CORPUSCULAR HGB CONC 33 % (32-36); MEAN CORPUSCULAR VOLUME 86 fL (79.0-98.0); MONOCYTES # (AUTO) 0.7 K/uL (0.0-1.0); MONOCYTES % (AUTO) 6.2 % (1.7-9.3); NEUTROPHILS # (AUTO) 8.6 K/uL (1.8-7.7); NEUTROPHILS % (AUTO) 79.9 % (40.0-70.0); PLATELET COUNT (AUTO) 327 K/uL (130-430); RED BLOOD CELL COUNT(AUTO) 3.88 MIL/uL (4.2-6.2); RED CELL DISTRIBUTION WIDTH 13.4 % (9.0-15.0); WHITE BLOOD COUNT (AUTO) 10.8 K/uL (4.8-10.8)
[2023-02-27 05:53] LABS: CALCIUM 8.3 mg/dL (8.4-11.0); CREATININE 1.14 mg/dL (0.55-1.30); PHOSPHORUS 4.5 mg/dL (2.7-4.5); POTASSIUM 3.8 mmol/L (3.5-5.1)
[2023-02-27 07:55] VITALS: BP_SYST 121; PULSE 81; RESP 18; TEMP 98.2; O2SAT 96
[2023-02-27] MEDS: PANTOPRAZOLE SODIUM 40 MG TAB PO SCH (08:15)
[2023-02-27] MEDS: ACETAMINOPHEN 325 MG TABLET PO PRN ×3 (08:16→22:06)
[2023-02-27 08:46] VITALS: BP_SYST 124; PULSE 84; O2SAT 96
[2023-02-27 12:00] VITALS: BP_SYST 125; PULSE 83; RESP 17; TEMP 98.1; O2SAT 97
[2023-02-27 14:33] LABS: BILIRUBIN,URINE NEGATIVE (NEGATIVE); BLOOD, URINE NEGATIVE (NEGATIVE); CLARITY/URINE CLEAR (CLEAR); COLOR,URINE YELLOW (YELLOW); GLUCOSE,URINE NEGATIVE (NEGATIVE); KETONES,URINE NEGATIVE (NEGATIVE); LEUKOCYTE ESTERASE ,URINE NEGATIVE (NEGATIVE); NITRITE, URINE NEGATIVE (NEGATIVE); PROTEIN URINE TRACE (NEGATIVE); UROBILINOGEN,URINE 0.2 (0.2-1.0)
[2023-02-27 14:42] LABS: BACTERIA,URINE RARE /HPF (None Seen); RBC,URINE 0-3 /HPF (0-3); WBC,URINE 0-3 /HPF (0-3)
[2023-02-27 14:43] LABS: MUCUS,URINE None Seen /LPF (None Seen); URIC ACID CRYSTALS,URINE 0-10 /HPF (None Seen)
[2023-02-27 16:26] VITALS: BP_SYST 122; PULSE 84; RESP 17; TEMP 98.3; O2SAT 97
[2023-02-27 20:00] VITALS: BP_SYST 104; PULSE 76; RESP 18; TEMP 98.1; O2SAT 97
[2023-02-27 23:13] VITALS: O2SAT 97
[2023-02-28] VITALS (7 sets, daily range): BP systolic 104–122; PULSE 71–88; RESP 16–20; TEMP 97–98.9; O2SAT 94–99
[2023-02-28] MEDS: ACETAMINOPHEN 325 MG TABLET PO PRN ×4 (04:09→22:12)
[2023-02-28] MEDS: POTASSIUM CHLORIDE IV SCH (05:15)
[2023-02-28] MEDS: D5LR IV SCH (05:15)
[2023-02-28] MEDS: PANTOPRAZOLE SODIUM 40 MG TAB PO SCH (09:33)
[2023-02-28] MEDS: MAG-AL HYDROX/SIMETH 30 ML UDC PO PRN ×2 (13:05→18:20)
[2023-03-01] VITALS: BP_SYST 121; PULSE 82; RESP 16; TEMP 98; O2SAT 99
[2023-03-01] MEDS: MAG-AL HYDROX/SIMETH 30 ML UDC PO PRN (05:20)
[2023-03-01] MEDS: ACETAMINOPHEN 325 MG TABLET PO PRN ×2 (05:25→13:15)
[2023-03-01 07:04] LABS: BASOPHILS # (AUTO) 0.1 K/uL (0.0-0.2); BASOPHILS % (AUTO) 0.3 % (0.0-2.0); EOSINOPHILS # (AUTO) 0.1 K/uL (0.0-0.4); EOSINOPHILS % (AUTO) 0.5 % (0.0-4.0); HEMOGLOBIN 11.2 g/dL (14.0-18.0); LYMPHOCYTES % (AUTO) 6.1 % (20.5-51.5); MEAN CORPUSCULAR HEMOGLOBIN 28 pg (27-31); MEAN CORPUSCULAR HGB CONC 33 % (32-36); MEAN CORPUSCULAR VOLUME 86 fL (79.0-98.0); MONOCYTES # (AUTO) 0.8 K/uL (0.0-1.0); MONOCYTES % (AUTO) 4.9 % (1.7-9.3); NEUTROPHILS # (AUTO) 15.1 K/uL (1.8-7.7); NEUTROPHILS % (AUTO) 88.2 % (40.0-70.0); PLATELET COUNT (AUTO) 355 K/uL (130-430); RED BLOOD CELL COUNT(AUTO) 3.96 MIL/uL (4.2-6.2); RED CELL DISTRIBUTION WIDTH 13.1 % (9.0-15.0); WHITE BLOOD COUNT (AUTO) 17.1 K/uL (4.8-10.8)
[2023-03-01 07:12] LABS: CALCIUM 7.6 mg/dL (8.4-11.0); CREATININE 0.78 mg/dL (0.55-1.30); POTASSIUM 4.4 mmol/L (3.5-5.1)
[2023-03-01 07:56] VITALS: BP_SYST 112; PULSE 89; RESP 18; TEMP 97.9; O2SAT 97
[2023-03-01] MEDS: PANTOPRAZOLE SODIUM 40 MG TAB PO SCH (08:01)
[2023-03-01 10:38] VITALS: O2SAT 97
[2023-03-01] MEDS: POTASSIUM CHLORIDE 20 MEQ in D5LR 1,000 ML IV SCH ×2 (11:44→21:06)
[2023-03-01 12:00] VITALS: BP_SYST 114; PULSE 77; RESP 18; TEMP 100.9; O2SAT 96
[2023-03-01] MEDS: metroNIDAZOLE 500 mg/NS 100 ML IV SCH ×2 (14:49→22:29)
[2023-03-01 20:00] VITALS: BP_SYST 122; BP_SYST 124; PULSE 90; PULSE 95; RESP 18; TEMP 99.8; O2SAT 98; O2SAT 99
[2023-03-02] VITALS (7 sets, daily range): BP systolic 117–126; PULSE 78–104; RESP 16–18; TEMP 97.7–99.3; O2SAT 95–99
[2023-03-02] MEDS: POTASSIUM CHLORIDE 20 MEQ in D5LR 1,000 ML IV SCH ×3 (06:08→23:23)
[2023-03-02] MEDS: metroNIDAZOLE 500 mg/NS 100 ML IV SCH ×3 (06:09→23:23)
[2023-03-02 07:01] LABS: POTASSIUM 4.7 mmol/L (3.5-5.1); TOTAL BILIRUBIN 0.8 mg/dL (0.0-1.0); TOTAL PROTEIN, SERUM 6.8 g/dL (6.4-8.3)
[2023-03-02] MEDS: ACETAMINOPHEN 325 MG TABLET PO PRN ×3 (07:45→19:31)
[2023-03-02 07:59] LABS: BASOPHILS # (AUTO) 0.1 K/uL (0.0-0.2); BASOPHILS % (AUTO) 0.4 % (0.0-2.0); EOSINOPHILS # (AUTO) 0.1 K/uL (0.0-0.4); EOSINOPHILS % (AUTO) 0.2 % (0.0-4.0); HEMATOCRIT 35.8 % (36-54); HEMOGLOBIN 11.6 g/dL (14.0-18.0); LYMPHOCYTES # (AUTO) 1.4 K/uL (1.0-5.5); LYMPHOCYTES % (AUTO) 7.1 % (20.5-51.5); MEAN CORPUSCULAR HEMOGLOBIN 28 pg (27-31); MEAN CORPUSCULAR HGB CONC 33 % (32-36); MEAN CORPUSCULAR VOLUME 86 fL (79.0-98.0); MONOCYTES # (AUTO) 1.2 K/uL (0.0-1.0); MONOCYTES % (AUTO) 5.8 % (1.7-9.3); NEUTROPHILS # (AUTO) 17.6 K/uL (1.8-7.7); NEUTROPHILS % (AUTO) 86.5 % (40.0-70.0); PLATELET COUNT (AUTO) 456 K/uL (130-430); RED BLOOD CELL COUNT(AUTO) 4.16 MIL/uL (4.2-6.2); RED CELL DISTRIBUTION WIDTH 13.6 % (9.0-15.0); WHITE BLOOD COUNT (AUTO) 20.4 K/uL (4.8-10.8)
[2023-03-02] MEDS: PANTOPRAZOLE SODIUM 40 MG TAB PO SCH (09:07)
[2023-03-02] MEDS: MAG-AL HYDROX/SIMETH 30 ML UDC PO PRN ×2 (09:07→18:20)
[2023-03-02] MEDS ORDERED: DIPHENHYDRAMINE INJ 50 MG/ML VIAL ONE (12:46)
[2023-03-02] MEDS ORDERED: fentaNYL CITRATE/PF 100 MCG/2 ML AMP ONE (12:46)
[2023-03-02] MEDS ORDERED: ONDANSETRON HCL 4 MG/2 ML VIAL ONE (12:46)
[2023-03-02] MEDS: MIDAZOLAM HCL 5 MG/5 ML VIAL ONE (12:47)
[2023-03-02] MEDS ORDERED: LIDOCAINE 1%, 20 ML MDV 20 ML ONE (13:05)
[2023-03-03 00:06] VITALS: BP_SYST 117; PULSE 87; RESP 16; TEMP 99.5; O2SAT 95
[2023-03-03] MEDS: ACETAMINOPHEN 325 MG TABLET PO PRN ×2 (04:27→12:03)
[2023-03-03 06:51] LABS: BASOPHILS % (AUTO) 0.4 % (0.0-2.0); EOSINOPHILS % (AUTO) 0.3 % (0.0-4.0); HEMATOCRIT 29.9 % (36-54); HEMOGLOBIN 9.8 g/dL (14.0-18.0); LYMPHOCYTES % (AUTO) 9.2 % (20.5-51.5); MEAN CORPUSCULAR HEMOGLOBIN 28 pg (27-31); MEAN CORPUSCULAR HGB CONC 33 % (32-36); MEAN CORPUSCULAR VOLUME 86 fL (79.0-98.0); MONOCYTES # (AUTO) 0.7 K/uL (0.0-1.0); MONOCYTES % (AUTO) 6.9 % (1.7-9.3); NEUTROPHILS % (AUTO) 83.2 % (40.0-70.0); PLATELET COUNT (AUTO) 379 K/uL (130-430); RED CELL DISTRIBUTION WIDTH 12.9 % (9.0-15.0); WHITE BLOOD COUNT (AUTO) 10.8 K/uL (4.8-10.8)
[2023-03-03] MEDS: metroNIDAZOLE 500 mg/NS 100 ML IV SCH ×2 (07:02→13:19)
[2023-03-03 07:55] LABS: CALCIUM 8.5 mg/dL (8.4-11.0); CREATININE 0.95 mg/dL (0.55-1.30); POTASSIUM 4.4 mmol/L (3.5-5.1)
[2023-03-03 08:00] VITALS: BP_SYST 126; PULSE 88; RESP 18; TEMP 98.4; O2SAT 96
[2023-03-03] MEDS: PANTOPRAZOLE SODIUM 40 MG TAB PO SCH (09:53)
[2023-03-03] MEDS: MIDAZOLAM HCL 5 MG/5 ML VIAL ONE (14:32)
[2023-03-03] MEDS ORDERED: ONDA-8 TL (16:12)
[2023-03-03] MEDS ORDERED: LEVO-62 PO (16:13)
[2023-03-03] MEDS ORDERED: METR-154 PO (16:14)
[2023-03-03 16:59] VITALS: BP_SYST 126; PULSE 88; RESP 18; TEMP 98.4; O2SAT 99
== END 2023-03-03 17:44 | disposition home or self-care (01) | DRG 398 ==
LOC: SED 13:38 → SMU 15:53 → STU 02-21 19:19 → SMU 02-24 16:15
PROVIDERS: ADMIT Surgery; ATTEND Surgery
PROC: 0DTJ4ZZ Resection of Appendix, Percutaneous Endoscopic Approach (ICD-10-PCS; principal; 2023-02-18 07:43)
PROC: 02HV33Z Insertion of Infusion Device into Superior Vena Cava, Percutaneous Approach (ICD-10-PCS; 2023-02-20)
PROC: B548ZZA Ultrasonography of Superior Vena Cava, Guidance (ICD-10-PCS; 2023-02-20)
PROC: 0W9F00Z Drainage of Abdominal Wall with Drainage Device, Open Approach (ICD-10-PCS; 2023-02-21)
PROC: 0W9F3ZZ Drainage of Abdominal Wall, Percutaneous Approach (ICD-10-PCS; 2023-03-02)
DX: K35.33 Acute appendicitis with perforation, localized peritonitis, and gangrene, with abscess (principal); K56.50 Intestinal adhesions [bands], unspecified as to partial versus complete obstruction; R18.8 Other ascites; K56.7 Ileus, unspecified; Z79.899 Other long term (current) drug therapy; Z85.07 Personal history of malignant neoplasm of pancreas; Z87.891 Personal history of nicotine dependence; Z87.11 Personal history of peptic ulcer disease
CPT/HCPCS: 36415; 71045; 71260-TC; 74018; 75989-TC; 76376; 76942-TC; 80048; 80053; 80074; 80076; 81000; 81001; 81003; 81015; 82962; 83605; 83690; 83735; 84100; 84478; 84484; 85025; 85610-TC; 85730-TC; 86886; 86900; 86901; 87040; 87070-TC; 87075-TC; 87081; 87086; 87205-TC; 87230-TC; 88304; 93005; 93306; 94010; 94760; 97116-GP; 97530-GP; 99285; C1729; C1750; C1769; C9113; C9290; G0378; J0330; J0694; J0696; J1100; J1170; J1200; J1885; J1956; J2001; J2060; J2250; J2270; J2405; J2704; J2710; J2765; J3010; J3465; J3480; J3490; J7030; J7060; J7120; J7131; Q9963; Q9964; Q9967